=== PATIENT | female | born 2000 | race African-American/Black ===

== ENCOUNTER 2023-12-21 14:37 | Day surgery (SDC) | payer OTHER ==
[2023-12-21 15:06] VITALS: BMI 28.3
[2023-12-21] MEDS ORDERED: hydrALAZINE 20 MG/ML VIAL SLOW IVP PRN (15:34)
== END 2023-12-21 15:38 | disposition left against medical advice (07) ==
LOC: CSHLD/OP 14:37
PROVIDERS: ATTEND Family Medicine
DX: O99.891 Other specified diseases and conditions complicating pregnancy (principal); M54.9 Dorsalgia, unspecified; R10.2 Pelvic and perineal pain; Z53.21 Procedure and treatment not carried out due to patient leaving prior to being seen by health care provider; Z3A.00 Weeks of gestation of pregnancy not specified
CPT/HCPCS: 99282